=== PATIENT | female | born 1955 | race Caucasian/White ===

== ENCOUNTER 2020-05-10 16:20 | Outpatient (CLI) | payer MEDICARE ==
[2020-05-10 16:55] LABS: CREATININE 1.22 mg/dL (0.55-1.02)
[2020-05-10] MEDS ORDERED: OMNIPAQUE 350 MG/ML, 150 ML BOTTLE ONE (18:09)
== END 2020-05-10 23:59 | disposition home or self-care (01) ==
LOC: RAD 16:20
PROVIDERS: ATTEND Surgery
DX: I82.411 Acute embolism and thrombosis of right femoral vein (principal); I82.811 Embolism and thrombosis of superficial veins of right lower extremity; M47.816 Spondylosis without myelopathy or radiculopathy, lumbar region; I70.8 Atherosclerosis of other arteries; R59.1 Generalized enlarged lymph nodes
CPT/HCPCS: 36415; 74177; 82565; Q9967